=== PATIENT | male | born 1960 | race Caucasian/White ===

== ENCOUNTER 2018-02-01 10:53 | Emergency (ER) | payer OTHER ==
[~2018-02-01] VITALS: Ht 188 cm; Wt 117.3 kg
[~2018-02-01 10:53] MED LIST: ATIVAN2 MG PO; CYMBALTA30 MG PO; CYMBALTA60 MG; FENTANYL25 MCG/HR TD; FENTANYL50 MCG/HR TD; FENTANYL50 MCG/HR TOP; FLEXERIL PO; FLEXERIL10 MG PO; IBUPROFEN600 MG PO; LORTAB 1010 MG PO; LORTAB5 PO; LYRICA150 MG PO; OXYCODONE5 M1 PO; PERCOCET1 TA4 PO; PHENERGAN25 MG/TAB; RESTORIL15 M1; ULTRAM50 M1 PO; ULTRAM50 MG OR; VALIUM5 MG PO; VICODIN HP1 TAB OR; VICOPROFEN; WELLBUTRIN SR150 MG PO; WELLBUTRIN150 M1
[2018-02-01] MEDS ORDERED: EPIPEN 2-P0.3 MG/0.3 IM (12:11)
[2018-02-01] MEDS ORDERED: DELTASONE20 MG PO (12:11)
[2018-02-01 12:27] VITALS: BP 121/71
== END 2018-02-01 12:42 | disposition home or self-care (01) ==
LOC: ED 10:53
DX: T63.461A Toxic effect of venom of wasps, accidental (unintentional), initial encounter (principal)

== ENCOUNTER 2022-02-16 12:40 | Emergency (ER) | payer OTHER ==
[~2022-02-16] VITALS: Ht 188 cm; Wt 107.0 kg
[~2022-02-16 12:40] MED LIST changes: +DELTASONE20 MG PO; +EPIPEN 2-P0.3 MG/0.3 IM
[2022-02-16] MEDS ORDERED: ALPRAZOLAM1 MG PO (13:38)
[2022-02-16] MEDS ORDERED: HYDROCODONE BIT1 TA7 PO (13:38)
[2022-02-16 13:46] VITALS: BP 134/93
== END 2022-02-16 13:52 | disposition home or self-care (01) ==
LOC: ED 12:40
DX: Z76.0 Encounter for issue of repeat prescription (principal); G89.29 Other chronic pain; M54.9 Dorsalgia, unspecified; F41.9 Anxiety disorder, unspecified